=== PATIENT | male | born 1955 | race Caucasian/White ===

== ENCOUNTER 2022-10-18 14:09 | Outpatient (CLI) | payer MEDICARE, SELFPAY ==
[2022-10-18 18:48] LABS: Alanine Aminotransferase 30 U/L (6-50); Albumin Level 3.8 g/dL (3.5-5.1); Alkaline Phosphatase 80 U/L (38-126); Anion Gap 10 mmol/L (8-16); Aspartate Amino Transferase 28 U/L (17-59); Bilirubin,Total 0.6 mg/dL (0.2-1.3); Blood Urea Nitrogen 37 mg/dL (9-20); Calcium 9.3 mg/dL (8.4-10.2); Carbon Dioxide 26 mmol/L (22-30); Chloride 103 mmol/L (98-107); Cholesterol 216 mg/dL (0-200); Estimated Glomerular Filt Rate 47; Glucose 107 mg/dL (65-110); HDL Direct 28 mg/dL; Potassium 4.2 mmol/L (3.4-5.0); Sodium 139 mmol/L (137-145); Triglycerides 145 mg/dL (<150)
[2022-10-18 18:49] LABS: Basophils Absolute Auto 0.1 K/mm3 (0.0-0.1); Basophils Percent Auto 0.4 % (0.2-1.2); Eosinophils Absolute Auto 0.1 K/mm3 (0-0.3); Eosinophils Percent Auto 0.5 % (0-4.4); Hematocrit 45.8 % (42.0-52.0); Hemoglobin 15.2 g/dL (14.0-18.0); Immature Granulocyte Absolute 0.07 K/mm3 (0.00-0.031); Immature Granulocyte Percent A 0.5 % (0-0.5); Lymphocytes Absolute Auto 2.01 K/mm3 (0.9-3.2); Lymphocytes Percent Auto 13.7 % (18.3-44.2); Mean Corpuscular HGB Conc 33.2 g/dl (32-36); Mean Corpuscular Hemoglobin 31.3 pg (26-34); Mean Corpuscular Volume 94.4 fl (80-100); Mean Platelet Volume 10.6 fl (7.4-10.4); Monocytes Absolute Auto 1.7 K/mm3 (0.1-0.6); Monocytes Percent Auto 11.8 % (2.6-8.5); Neutrophils Absolute Auto 10.7 K/mm3 (1.3-6.7); Neutrophils Percent Auto 73.1 % (45.5-73.1); Platelet Count Result 206 k/mm3 (150-375); Red Blood Count 4.85 M/mm3 (4.6-6.20); Red Cell Distribution Width 12.3 % (11.5-14.5); White Blood Count 14.6 K/mm3 (4.5-10.0)
[2022-10-18 18:59] LABS: LDL Cholesterol Direct 141 mg/dL
[2022-10-18 19:17] LABS: Prostate Specific Antigen 24.6 ng/mL (< OR = 4.0)
== END 2022-10-18 14:10 | disposition home or self-care (01) ==
LOC: ANHGOSHLAB 14:10
PROVIDERS: PCP Family Medicine; Visit Provider Family Medicine
DX: Z13.220 Encounter for screening for lipoid disorders (principal); Z13.228 Encounter for screening for other metabolic disorders; R53.83 Other fatigue; I10 Essential (primary) hypertension; Z12.5 Encounter for screening for malignant neoplasm of prostate
CPT/HCPCS: 36415; 80053; 80061; 84153; 85025; G0103

== ENCOUNTER 2022-10-25 12:34 | Outpatient (CLI) | payer MEDICARE, SELFPAY ==
--- NOTE | ~2022-10-25 | CT_ITS ---
Non-contrast CT scan of the Abdomen Clinical indication: Abdominal pain Technique: Axial mm axial scans were obtained through the abdomen without intravenous or oral contras t. Dose reduction technique was used on this scan by utilizing automated exposure control and iterati ve reconstruction technique. The dose-length product (DLP) was 467.74 mGy-cm. Findings: Images through the lung bases reveal no abnormalities. Punctate nonobstructing left renal stone present. No right renal stone. No hydronephrosis on either s estrellita. The liver, spleen, pancreas, gallbladder, and adrenals appear normal. There is no aortic aneurysm. There is a 9.3 x 7.1 x 9.9 cm abscess, with internal air-fluid level in the right mid abdomen, with f ocal calcification at the inferior margin of the collection. There is mild surrounding inflammatory c hange. Impression: 9.3 x 7.1 x 9.9 cm right mid abdominal abscess. This is probably most likely related to perforated/co mplex appendicitis. Punctate nonobstructing left renal stone. Case discussed with Dr. Soriano at 1:15 PM on 10/25/2022. Reviewed, dictated and finalized at location . T DIPPER Impression: 9.3 x 7.1 x 9.9 cm right mid abdominal abscess. This is probably most likely re lated to perforated/complex appendicitis. Punctate nonobstructing left renal stone. Case discussed with Dr. Soriano at 1:15 PM on 10/25/2022.
== END 2022-10-25 12:35 ==
PROVIDERS: PCP Family Medicine; Visit Provider Nurse Practitioner Family
DX: N20.0 Calculus of kidney (principal); L02.211 Cutaneous abscess of abdominal wall
CPT/HCPCS: 74150

== ENCOUNTER 2022-10-25 13:28 | Inpatient (IN) | payer MEDICARE, SELFPAY ==
--- NOTE | ~2022-10-25 | CT_ITS ---
EXAMINATION: CT guide absc cath placement DATE: 10/25/2022 17:16 INDICATION: Periappendiceal abscess. TECHNIQUE: The procedure including the risks, benefits, and alternatives was discussed with the patie nt. Risks discussed included bleeding and infection. The patient understood the risks and benefits an d agreed to proceed. The skin overlying the abdomen was prepped and draped in usual sterile fashion. Anesthetic was administered with 1% lidocaine subcutaneously. An 18 gauge trochar needle was inserte d into the periappendiceal abscess with CT guidance. The needle was exchanged over a wire for 6 Frenc h, 8 Palauan, and 9 Palauan dilators and then for an 8.5 Palauan pigtail catheter. The catheter was stit ched to the skin, and a sterile dressing was applied. The mA was adjusted according to patient size. Iterative reconstruction technique was employed. The dose-length product was 117.64 mGy-cm. There wer e no immediate complications. FINDINGS: CT images demonstrate the catheter within the periappendiceal abscess. 2 mL fluid was aspir ated for testing. IMPRESSION: 1. Successful CT-guided periappendiceal abscess drainage. 2. 2 mL foul-smelling, opaque, meng fluid was sent for aerobic and anaerobic cultures. Reviewed, dictated and finalized at location E. [facility] [employer] [employer] IMPRESSION: 1. Successful CT-guided periappendiceal abscess drainage. 2. 2 mL foul-smelling, opaque, meng fluid was sent for aerobic and anaerobic cul tures.
[2022-10-25 13:35] VITALS: BP 140/81; PULSE 49; RESP 18; TEMP 36.4; O2SAT 100
--- NOTE | 2022-10-25 13:43 | ED.GENADULT ---
HPI - General Adult General Chief complaint: Recheck/Abnormal Lab/Rx Stated complaint: sent from imaging center for infection Time Seen by Provider: 10/25/22 13:36 Source: RN notes reviewed History of Present Illness HPI narrative: Patient presents emergency department from outpatient radiology for intra-abdominal abscess. Patient states has been having abdominal pain for approximately the past 1 week. The pain is located in the lower abdomen worse on the right side states it has been associated with some chills states he has seen his PCP last week and did continue to have the pain and had a CT scan done today and was instructed to come to the ER for further evaluation. Patient is review of his outpatient exam does show an intra-abdominal abscess with concerns of a ruptured appendix he denies having any fevers he denies any chest pain shortness of breath nausea vomiting diarrhea or any other symptom Related Data Allergies Allergy/AdvReac Type Severity Reaction Status Date / Time No Known Allergies Allergy Verified 10/25/22 10:05 Review of Systems Review of Systems: Gen.: Denies fevers reports chills ENT: Denies congestion Respiratory: Denies shortness of breath or cough CV: Denies chest pain or palpitations GI: See HPI Musculoskeletal: Denies back pain or muscle pain Neuro: Denies numbness, tingling, weakness or focal weakness Skin: Denies rash Except as documented, all other systems reviewed and negative PMFSH Past Medical History Medical History Gastroesophageal reflux disease Social History Social History Smoking status: Never smoker Alcohol intake: never Substance use: never Lack of Transportation: No Lack of Food: Never True Current Housing: I Have Housing Concerned About Future Housing: No Difficulty Paying Gas/Electric Bills: No Difficulty Paying for Meds: No Currently Unemployed: No Education: Trade/Vocational Certificate Difficulty w/ Childcare or Family Care: No Living arrangements: alone Occupation/Education: retired Gender identity (if verbalized by the patient): Male Exam Narrative: APPEARANCE: No acute distress, nontoxic, resting in bed HEENT: Normocephalic, atraumatic, OMM RESPIRATORY: No respiratory distress, clear to auscultation bilaterally with no rhonchi wheezing or rales CARDIOVASCULAR: RRR s murmur ABDOMINAL: Soft nondistended tender palpation right lower quadrant and left lower quadrant no tenderness in right upper quadrant and left upper quadrant no rebound or guarding MUSCULOSKELETAl: Moves all extremities. No clubbing, cyanosis or edema. NEURO: Awake and alert. Following commands, speech normal, no focal deficits SKIN:: Warm, dry. Normal Color PSYCHIATRIC: Normal affect/mood Course Course Emergency Course: Reviewed outpatient CT scan showing intra-abdominal abscess Called and discussed with Dr. Goodson for general surgery presentation work-up. Agrees admission to his service with patient started on Zosyn Discussed with patient and family results of workup and diagnosis. Discussed need for admission. Patient and family understand and agree to current treatment plan Vital Signs Vital signs: Vital Signs Temperature 97.6 F 10/25/22 13:35 Pulse Rate 49 L 10/25/22 13:35 Respiratory Rate 18 10/25/22 13:35 Blood Pressure 140/81 10/25/22 13:35 Pulse Oximetry 100 10/25/22 13:35 Temperature 97.6 F 10/25/22 13:35 Pulse Rate 49 L 10/25/22 13:35 Respiratory Rate 18 10/25/22 13:35 Blood Pressure 140/81 10/25/22 13:35 Pulse Oximetry 100 10/25/22 13:35 Medical Decision Making Vital Signs Vital Signs: Vital Signs Temperature 97.6 F 10/25/22 13:35 Pulse Rate 49 L 10/25/22 13:35 Respiratory Rate 18 10/25/22 13:35 Blood Pressure 140/81 10/25/22 13:35 Pulse Oximetry 100 10/25/22 13:35 Temperat
[2022-10-25 14:40] LABS: Basophils Absolute Auto 0.1 K/mm3 (0.0-0.1); Basophils Percent Auto 0.3 % (0.2-1.2); Hematocrit 40.7 % (42.0-52.0); Hemoglobin 13.6 g/dL (14.0-18.0); Immature Granulocyte Percent A 0.9 % (0-0.5); Lymphocytes Absolute Auto 1.24 K/mm3 (0.9-3.2); Lymphocytes Percent Auto 5.5 % (18.3-44.2); Mean Corpuscular HGB Conc 33.4 g/dl (32-36); Mean Corpuscular Hemoglobin 31.9 pg (26-34); Mean Corpuscular Volume 95.5 fl (80-100); Monocytes Absolute Auto 1.6 K/mm3 (0.1-0.6); Monocytes Percent Auto 7.1 % (2.6-8.5); Neutrophils Absolute Auto 19.5 K/mm3 (1.3-6.7); Neutrophils Percent Auto 86.2 % (45.5-73.1); Platelet Count Result 256 k/mm3 (150-375); Red Blood Count 4.26 M/mm3 (4.6-6.20); Red Cell Distribution Width 12.2 % (11.5-14.5); White Blood Count 22.6 K/mm3 (4.5-10.0)
[2022-10-25 14:51] LABS: INR 1.2; Partial Thromboplastin Time 28.3 SECONDS (22.3-36.8); Prothrombin Time 14.9 Seconds (11.1-14.7)
[2022-10-25 14:52] LABS: Alanine Aminotransferase 25 U/L (6-50); Albumin Level 3.7 g/dL (3.5-5.1); Alkaline Phosphatase 105 U/L (38-126); Anion Gap 11 mmol/L (8-16); Aspartate Amino Transferase 24 U/L (17-59); Bilirubin,Total 0.6 mg/dL (0.2-1.3); Blood Urea Nitrogen 26 mg/dL (9-20); Calcium 8.7 mg/dL (8.4-10.2); Carbon Dioxide 23 mmol/L (22-30); Chloride 102 mmol/L (98-107); Estimated CRCL calculation 58 ml/min; Estimated Glomerular Filt Rate > 60; Glucose 111 mg/dL (65-110); Sodium 136 mmol/L (137-145)
[2022-10-25] MEDS: SODIUM CHLORIDE 0.9% IV 1,000 ML 999 ML IV CONT (15:03)
[2022-10-25 15:20] LABS: Appearance Urine Slightly Cloudy (Clear); Bilirubin Urine 1+ (Negative); Blood Urine Negative (Negative); Color Urine Yellow (Yellow); Glucose Urine UA Negative (Negative); Ketones Urine 3+ mg/dL (Negative); Leukocyte Esterase Ur Negative LEU/UL (Negative); Nitrate Urine Negative (Negative); Protein Urine 1+ mg/dL (Negative); Specific Grav Ur 1.025 (1.001-1.035); Urobilinogen Urine 0.2 mg/dL (<2.0); pH Urine 5.5 (5.0-9.0)
[2022-10-25 15:23] LABS: Influenza A QL RT-PCR Negative (Negative); Influenza B QL RT-PCR Negative (Negative); SARS-CoV-2 RNA PCR Negative
[2022-10-25 15:26] LABS: Bacteria Urine Trace /hpf; Mucus Urine Heavy /lpf; Squamous Epithelial Cell Urine Rare /hpf (Few)
[2022-10-25 15:45] LABS: Add Urine Microscopic? YES
--- NOTE | 2022-10-25 15:47 | PM.IMHP ---
H&P: HPI History of Present Illness Date/Time: 10/25/22 15:47 Chief Complaint: Abdominal pain Narrative: This is a 67-year-old man with a history of hypertension and GERD who presented to the emergency department due to findings of an intra-abdominal abscess on an outpatient CT scan. He reports an onset of periumbilical and right lower quadrant abdominal pain 9 days ago. His pain was persistent and keeping him up at night. After a few days he went to his primary care provider last Tuesday due to his abdominal pain and sciatic pain. He states that prior to the onset of his abdominal pain he was also having some radiating sciatic pain that has been going on a few days longer. This was similar to an episode he had years ago. His PCP ordered labs at that time. Those labs showed a white blood cell count of 14,600, BUN 37, creatinine 1.5, elevated cholesterol, and a PSA of 24.6. He was referred to urology as an outpatient. He reports his abdominal pain continued throughout the week without improvement and he return to see his PCP today. He has not had much sleep in the past week due to his pain because it is aggravated when he lies on his sides. They sent him for CT scan of the abdomen and pelvis which showed a 9.3 x 7.1 x 9.9 cm right mid abdominal abscess that is probably related to perforated appendicitis. He was then directed to the ER due to the CT findings. Labs were repeated and showed a white blood cell count of 22,000. His creatinine was down to 1.2. The ED consulted our service due to intra-abdominal abscess. He is now seen in the ER. With further questioning, he admits to having chills the first day or 2 after the onset of abdominal pain, but no fever. Denies any nausea, vomiting, diarrhea, or any other complaints at this time. His bowels have been moving normally with his last bowel movement earlier today. He does endorse some bloating over the past week. No previous abdominal surgeries. He has had one colonoscopy with polypectomy about 15 years ago. He additionally reports after being referred to urology last week, he had an MRI done in [place] 3 days ago. Review of Systems Review of Systems: All systems reviewed & are unremarkable except as noted in HPI and below Constitutional: Constitutional: Reports no additional constitutional complaints, Reports chills, Denies fatigue, Denies fever(s) and Denies poor appetite Eyes: Eyes: Reports no additional eye complaints ENT: Reports system reviewed and no additional complaints, except as documented and Denies dizziness Cardiovascular: Cardiovascular: Reports no additional cardiovascular complaints, Denies chest pain and Denies leg edema Respiratory: Respiratory: Reports no additional respiratory complaints, Denies cough and Denies dyspnea Gastrointestinal: Gastrointestinal: Reports as per HPI, Reports no additional gastrointestinal complaints, Reports abdominal pain, Denies change in bowel habits, Denies change in stool character, Denies constipation, Denies diarrhea, Denies nausea and Denies vomiting Genitourinary: Genitourinary: Reports no additional male genitourinary complaints and Denies dysuria Musculoskeletal: Musculoskeletal: Reports no additional musculoskeletal complaints, Denies abnormal gait and Denies joint swelling Integumentary/Breasts: Skin/Breast: Reports system reviewed and no additional complaints, except as docu Neurologic: Reports system reviewed and no additional complaints, except as documented, Denies focal weakness, Denies numbness and Denies tingling PMFSH Past Medical History Medical History Essential (primary) hypertension Gastroesophageal reflux disease Hyperlipidemia Surgical History Surgical History History of colonoscopy with polypectomy History of knee surgery Family History Family History (Reviewed 10/25/22 @ 16:02 by Hali
[2022-10-25 17:25] VITALS: BP 136/88; PULSE 84; RESP 18; O2SAT 100
--- NOTE | 2022-10-25 17:58 | ADMGEN ---
This patient, Herbert Hernandez, was admitted to [facility] Surg Room 302-01. Patient/family oriented to hospital policies and general routines including ID bracelet, bed and alarms, visiting hours, pain management, procedures, bathroom and other care routines, personal items, smoking policy, room service/diet, and visiting hours. Information on how to activate the Rapid Response Team has been discussed. Patient/Family are encouraged to report perceived risks to care and to ask questions if they do not understand what they are told or what they should do.
[2022-10-25 18:00] VITALS: BP 170/80; PULSE 86; RESP 18; TEMP 37.2; O2SAT 100; BMI 27.8
[2022-10-25] MEDS: SODIUM CHLORIDE 0.9% IV 1,000 ML 125 ML IV CONT (18:10)
[2022-10-25] MEDS: hydrALAZINE HCL 20 MG/ML VIAL 10 MG IV PUSH (18:32)
[2022-10-25 21:32] VITALS: BP 126/72; PULSE 86; RESP 18; TEMP 36.8; O2SAT 97
[2022-10-26] MEDS: SODIUM CHLORIDE 0.9% IV 1,000 ML 125 ML IV CONT (02:36)
[2022-10-26 05:52] VITALS: BP 125/77; PULSE 74; RESP 16; TEMP 36.3; O2SAT 95
[2022-10-26 06:52] LABS: Basophils Percent Auto 0.2 % (0.2-1.2); Eosinophils Percent Auto 0.1 % (0-4.4); Hematocrit 35.7 % (42.0-52.0); Hemoglobin 11.7 g/dL (14.0-18.0); Immature Granulocyte Percent A 0.6 % (0-0.5); Lymphocytes Absolute Auto 1.57 K/mm3 (0.9-3.2); Lymphocytes Percent Auto 9.8 % (18.3-44.2); Mean Corpuscular HGB Conc 32.8 g/dl (32-36); Mean Corpuscular Hemoglobin 31.1 pg (26-34); Mean Corpuscular Volume 94.9 fl (80-100); Mean Platelet Volume 10.1 fl (7.4-10.4); Monocytes Absolute Auto 1.4 K/mm3 (0.1-0.6); Monocytes Percent Auto 8.6 % (2.6-8.5); Neutrophils Percent Auto 80.7 % (45.5-73.1); Platelet Count Result 231 k/mm3 (150-375); Red Blood Count 3.76 M/mm3 (4.6-6.20); Red Cell Distribution Width 12.4 % (11.5-14.5); White Blood Count 16.1 K/mm3 (4.5-10.0)
[2022-10-26 07:18] LABS: Alanine Aminotransferase 21 U/L (6-50); Alkaline Phosphatase 87 U/L (38-126); Anion Gap 5 mmol/L (8-16); Aspartate Amino Transferase 24 U/L (17-59); Bilirubin,Total 0.7 mg/dL (0.2-1.3); Blood Urea Nitrogen 22 mg/dL (9-20); Calcium 7.8 mg/dL (8.4-10.2); Carbon Dioxide 25 mmol/L (22-30); Chloride 103 mmol/L (98-107); Estimated CRCL calculation 58 ml/min; Estimated Glomerular Filt Rate > 60; Glucose 95 mg/dL (65-110); Potassium 4.1 mmol/L (3.4-5.0); Sodium 133 mmol/L (137-145)
--- NOTE | 2022-10-26 12:28 | PM.PNGS ---
Progress Note: A&P Assessment and Plan (1) Acute perforated appendicitis: Code(s): K35.32 - Acute appendicitis with perforation, localized peritonitis, and gangrene, without abscess Status: Acute Assessment and Plan: exam benign, cont abx, ADAT, will possibly need interval appendectomy in 6-8 wks (2) Intra-abdominal abscess: Code(s): K65.1 - Peritoneal abscess Status: Acute Assessment and Plan: s/p perc drain, cont drain/abx Subjective Subjective Date/Time Seen: 10/26/22 12:28 feels good, pain/pressure much improved Review of Systems Review of Systems: All systems reviewed & are unremarkable except as noted in HPI and below Exam Const: General: cooperative, comfortable and no acute distress Resp: Auscultation: clear to auscultation bilaterally Cardio: Rate: regular rate Rhythm: regular rhythm GI: Inspection: normal to inspection and distended GI Palp: Yes abdominal tenderness, Yes Soft to palpation, Yes Tenderness to palpation present (GI), No Guarding due to palpation present (GI) and No Rigid due to palpation Objective Data Vital Signs Vital Signs: Vital Signs - 24 hr 10/25/22 13:35 10/25/22 17:25 10/25/22 17:50 Temperature 36.4 C Pulse Rate 49 L 84 Respiratory Rate 18 18 Blood Pressure 140/81 136/88 Pulse Oximetry 100 100 Oxygen Delivery Room Air 10/25/22 18:00 10/25/22 21:32 10/26/22 05:52 Temperature 37.2 C 36.8 C 36.3 C L Pulse Rate 86 86 74 Respiratory Rate 18 18 16 Blood Pressure 170/80 H 126/72 125/77 Pulse Oximetry 100 97 95 Oxygen Delivery Intake/Output Intake/Output: Intake & Output 10/23/22 10/24/22 10/25/22 10/26/22 23:59 23:59 23:59 23:59 Intake Total 1100 1400 Output Total 80 Balance 1020 1400 Meds/Results Medications: Active Medications Generic Name Dose Route Start Last Admin Trade Name Freq PRN Reason Stop Dose Admin Hydralazine HCl 10 mg 10/25/22 18:23 Hydralazine Hcl 20 Mg/Ml Vial IV PUSH Q4HR PRN Blood Pressure - High SBP>180 or DBP>90 Piperacillin/Tazobactam/Dextrose 3.375 gm in 50 mls @ 100 mls/hr 10/25/22 21:00 10/26/22 09:03 Zosyn 3.375 Gm/D5w 50ml Pm IVPB Infused Q6H BERNA Infusion Acetaminophen 1,000 mg in 100 mls @ 400 mls/hr 10/25/22 16:09 Ofirmev 1,000 Mg Ivpb IVPB 10/26/22 16:08 Q6H PRN Pain Rated 4-6 Morphine Sulfate 2 mg 10/25/22 16:09 Morphine Sulfate (*Crx) 2 Mg/Ml Inj IV PUSH Q2H PRN Pain Rated 7-10 Radiology Results: ITS Impressions Catheter Placement CT 10/25/22 17:54 IMPRESSION: 1. Successful CT-guided periappendiceal abscess drainage. 2. 2 mL foul-smelling, opaque, meng fluid was sent for aerobic and anaerobic cultures. Labs Labs: Laboratory Results - last 24 hr 10/25/22 10/25/22 10/25/22 14:09 14:09 14:09 WBC 22.6 H RBC 4.26 L Hgb 13.6 L Hct 40.7 L MCV 95.5 MCH 31.9 MCHC 33.4 RDW 12.2 Plt Count 256 MPV 10.0 Immature Gran % (Auto) 0.9 H Neut % (Auto) 86.2 H Lymph % (Auto) 5.5 L Hawkins % (Auto) 7.1 Eos % (Auto) 0.0 Baso % (Auto) 0.3 Lymph # (Auto) 1.24 Hawkins # (Auto) 1.6 H Eos # (Auto) 0.0 Baso # (Auto) 0.1 Abs Immat Gran (auto) 0.20 H Absolute Neuts (auto) 19.5 H Absolute Nucleated RBC 0.0 Nucleated RBC % 0.0 PT 14.9 H INR 1.2 APTT 28.3 Sodium 136 L Potassium 4.0 Chloride 102 Carbon Dioxide 23 Anion Gap 11 BUN 26 H D Creatinine 1.20 Estim Creat Clear Calc 58 Estimated GFR > 60 Glucose 111 H Lactic Acid Calcium 8.7 Total Bilirubin 0.6 AST 24 ALT 25 Alkaline Phosphatase 105 Total Protein 7.0 Albumin 3.7 Urine Color Urine Appearance Urine pH Ur Specific [place] Urine Protein Urine Glucose (UA) Urine Ketones Ur Blood (Man) Urine Nitrate Urine Bilirubin Urine Urobilinogen Leukocyte Esterase Rfl Ur
[2022-10-26 12:40] VITALS: BMI 27.8
--- NOTE | 2022-10-26 13:22 | PM.IMCN ---
Assessment and Plan Assessment and plan (1) Acute perforated appendicitis: Code(s): K35.32 - Acute appendicitis with perforation, localized peritonitis, and gangrene, without abscess Status: Acute Assessment and Plan: Pt seen by surgery team Sp percutenous drain Good output will need appendectomy soon in 6-8 weeks time continue iv zosyn watch cultures follow [facility] (2) Hyperlipidemia: Qualifiers: Hyperlipidemia type: other hyperlipidemia Qualified Code(s): E78.49 - Other hyperlipidemia Code(s): E78.5 - Hyperlipidemia, unspecified Status: Chronic Assessment and Plan: low cholesterol diet recommended pt is not on any cholesterol medications (3) Essential (primary) hypertension: Code(s): I10 - Essential (primary) hypertension Status: Chronic Assessment and Plan: Continue lisinopril in the hospital Watch blood pressures here in the hospital Bp is 125/77 Chronic and stable (4) Overweight (BMI 25.0-29.9): Code(s): E66.3 - Overweight Status: Acute Assessment and Plan: Diet and exercise advised (5) Gastroesophageal reflux disease: Code(s): K21.9 - Gastro-esophageal reflux disease without esophagitis Status: Acute Assessment and Plan: Continue home omeprazole (6) Urinary hesitancy: Code(s): R39.11 - Hesitancy of micturition Status: Acute Assessment and Plan: Watch UO Watch BMP PSA is high as outpatient pt to follow with urology MD for BPH Add tamsulosin for BPH Plan lovenox for DVT prophylaxis HPI Data of Consult Consult date: 10/26/22 Requesting Physician: Roxann Goodson MD Primary Care Provider: Karlo Rider DO Consult Narrative Narrative: Herbert Hernandez is a 67 year old male admitted for severe LLQ abdominal pains Pt had been having severe LLQ abdominal pains for 1 week waking him up in his sleep Pt went to his PCP MD last Tuesday for abdominal pains and sciatica. Pt had labs ordered at that time showing raised PSA Pt is a to follow with urologist for urinary hesitancy and elevated PSA. Pt having severe abdominal pains so CT abdomen ordered stat yesterday showing - 9.3 x 7.1 x 9.9 cm right mid abdominal abscess. This is probably most likely related to perforated/complex appendicitis. Punctate nonobstructing left renal stone Pt was advised to go straight to ED PT seen by surgery had percutaneous drain and iv antibiotics started Pt has history of GERD, HTN and HLD and recently found to have raised PSA levels Review of Systems Review of Systems: Urinary hesitancy mild LLQ pains PMFSH Past Medical History Medical History Essential (primary) hypertension Gastroesophageal reflux disease Hyperlipidemia Surgical History Surgical History History of colonoscopy with polypectomy History of knee surgery Family History Family History Father Brain cancer Hypertension Mother Uterine cancer Parkinsons Social History Social History Smoking status: Never smoker Alcohol intake: never Substance use: never Lack of Transportation: No Lack of Food: Never True Current Housing: I Have Housing Concerned About Future Housing: No Difficulty Paying Gas/Electric Bills: No Difficulty Paying for Meds: No Currently Unemployed: No Education: Trade/Vocational Certificate Difficulty w/ Childcare or Family Care: No Living arrangements: alone Occupation/Education: retired Gender identity (if verbalized by the patient): Male Spiritual care concerns: No Meds Home Medications and Allergies Home Medications Medication Instructions Recorded Confirmed Type lisinopril 10 mg tablet 10 mg PO DAILY #30
[2022-10-26 14:00] VITALS: BP 141/82; PULSE 84; RESP 20; TEMP 36.6; O2SAT 97
[2022-10-26] MEDS: PANTOPRAZOLE 40 MG TABLET PO (20:39)
[2022-10-26 22:00] VITALS: BP 137/79; PULSE 72; RESP 18; TEMP 36.4; O2SAT 97
[2022-10-27 06:00] VITALS: BP 149/77; PULSE 67; RESP 14; TEMP 36.2; O2SAT 98
[2022-10-27 06:53] LABS: Hematocrit 36.9 % (42.0-52.0); Hemoglobin 12.1 g/dL (14.0-18.0); Mean Corpuscular HGB Conc 32.8 g/dl (32-36); Mean Corpuscular Hemoglobin 31.3 pg (26-34); Mean Corpuscular Volume 95.3 fl (80-100); Mean Platelet Volume 9.9 fl (7.4-10.4); Platelet Count Result 243 k/mm3 (150-375); Red Blood Count 3.87 M/mm3 (4.6-6.20); Red Cell Distribution Width 12.2 % (11.5-14.5); White Blood Count 10.2 K/mm3 (4.5-10.0)
[2022-10-27 07:01] LABS: Anion Gap 4 mmol/L (8-16); Blood Urea Nitrogen 18 mg/dL (9-20); Calcium 8.1 mg/dL (8.4-10.2); Carbon Dioxide 26 mmol/L (22-30); Chloride 104 mmol/L (98-107); Estimated CRCL calculation 58 ml/min; Estimated Glomerular Filt Rate > 60; Glucose 98 mg/dL (65-110); Potassium 3.8 mmol/L (3.4-5.0); Sodium 134 mmol/L (137-145)
[2022-10-27] MEDS: lisinopriL 10 MG TABLET PO (09:10)
[2022-10-27] MEDS: TAMSULOSIN HCL 0.4 MG CAPSULE PO (09:10)
[2022-10-27] MEDS: ENOXAPARIN 40 MG/0.4 ML SYRINGE SUB-Q (09:10)
[2022-10-27 09:24] VITALS: O2SAT 96
--- NOTE | 2022-10-27 11:42 | PM.IMPN ---
Progress Note: A&P Assessment and Plan (1) Acute perforated appendicitis: Code(s): K35.32 - Acute appendicitis with perforation, localized peritonitis, and gangrene, without abscess Status: Acute Assessment and Plan: Pt seen by surgery team Sp percutenous drain Good output will need appendectomy soon in 6-8 weeks time continue iv zosyn watch cultures follow [facility] (2) Hyperlipidemia: Qualifiers: Hyperlipidemia type: other hyperlipidemia Qualified Code(s): E78.49 - Other hyperlipidemia Code(s): E78.5 - Hyperlipidemia, unspecified Status: Chronic Assessment and Plan: low cholesterol diet recommended pt is not on any cholesterol medications (3) Essential (primary) hypertension: Code(s): I10 - Essential (primary) hypertension Status: Chronic Assessment and Plan: Continue lisinopril in the hospital Watch blood pressures here in the hospital Bp is 125/77 Chronic and stable (4) Overweight (BMI 25.0-29.9): Code(s): E66.3 - Overweight Status: Acute Assessment and Plan: Diet and exercise advised (5) Gastroesophageal reflux disease: Code(s): K21.9 - Gastro-esophageal reflux disease without esophagitis Status: Acute Assessment and Plan: Continue home omeprazole (6) Urinary hesitancy: Code(s): R39.11 - Hesitancy of micturition Status: Acute Assessment and Plan: Watch UO Watch BMP PSA is high as outpatient pt to follow with urology MD for BPH Add tamsulosin for BPH Plan lovenox for DVT prophylaxis Subjective Date/time seen: 10/27/22 11:42 No new complaints Exam Const: General: cooperative, comfortable and no acute distress Eyes: Other: Middle aged friendly man Resp: Auscultation: clear to auscultation bilaterally Cardio: Rate: regular rate Rhythm: regular rhythm GI: Inspection: normal to inspection and distended Other: Percutaneous drain in the LLQ draining well red colored drainage Psych: Other: Looks depressed and down Objective Data Vital Signs Vital Signs: Vital Signs - 24 hr 10/26/22 14:00 10/26/22 22:00 10/27/22 06:00 Temperature 97.8 F 97.5 F L 97.2 F L Pulse Rate 84 72 67 Respiratory Rate 20 18 14 Blood Pressure 141/82 H 137/79 149/77 H Pulse Oximetry 97 97 98 Oxygen Delivery 10/27/22 09:24 Temperature Pulse Rate Respiratory Rate Blood Pressure Pulse Oximetry 96 Oxygen Delivery Room Air Intake/Output Intake/Output: Intake & Output 10/24/22 10/25/22 10/26/22 10/27/22 23:59 23:59 23:59 23:59 Intake Total 1100 1690 400 Output Total 80 185 Balance 1020 1505 400 Meds/Results Medications: Active Medications Generic Name Dose Route Start Last Admin Trade Name Freq PRN Reason Stop Dose Admin Hydrocodone Bitart/Acetaminophen 1 tab 10/26/22 13:41 Hydrocodone/Acetaminophen (*Crx) 5-325 Mg Tablet PO Q6H PRN Pain Rated 4-6 Enoxaparin Sodium 40 mg 10/27/22 09:00 10/27/22 09:10 Enoxaparin 40 Mg/0.4 Ml Syringe SUB-Q 40 mg DAILY BERNA Administration Hydralazine HCl 10 mg 10/25/22 18:23 Hydralazine Hcl 20 Mg/Ml Vial IV PUSH Q4HR PRN Blood Pressure - High SBP>180 or DBP>90 Piperacillin/Tazobactam/Dextrose 3.375 gm in 50 mls @ 100 mls/hr 10/25/22 21:00 10/27/22 09:09 Zosyn 3.375 Gm/D5w 50ml Pm IVPB 100 mls/hr Q6H BERNA Administration Lisinopril 10 mg 10/27/22 09:00 10/27/22 09:10 Lisinopril 10 Mg Tablet PO 10 mg DAILY BERNA Administration Morphine Sulfate 2 mg 10/25/22 16:09 Morphine Sulfate (*Crx) 2 Mg/Ml Inj IV PUSH Q2H PRN Pain Rated 7-10 Pantoprazole Sodium 40 mg 10/26/22 21:00 10/26/22 20:39 Pantoprazole 40 Mg Tablet PO 40 mg Q12HR BERNA Administration Tamsulosin HCl 0.4 mg 10/27/22 09:00 10/27/22 09:10 Tamsulosin Hcl 0.4 Mg Capsule PO 0.4 mg QAM BERNA Administration Radiology Results: ITS Impressions
[2022-10-27 14:00] VITALS: BP 147/86; PULSE 82; RESP 20; TEMP 36.2; O2SAT 98
--- NOTE | 2022-10-27 14:32 | PM.DS ---
DS: Admitting Diagnosis Discharge Date 10/27/22 Admitting Diagnosis Intra-abdominal abscess with acute perforated appendicitis Hypertension GERD DS: Discharge Diagnosis Discharge Diagnosis (1) Acute perforated appendicitis: Code(s): K35.32 - Acute appendicitis with perforation, localized peritonitis, and gangrene, without abscess Status: Acute (2) Intra-abdominal abscess: Code(s): K65.1 - Peritoneal abscess Status: Acute (3) Urinary hesitancy: Code(s): R39.11 - Hesitancy of micturition Status: Acute Assessment and Plan: Patient with an elevated PSA found on labs recently as an outpatient by his PCP. He has a referral to Urology and had an outpatient MRI last week for this. Urology was called and reviewed his chart but felt there were no acute issues that needed to be addressed during his hospitalization and he would be appropriate for outpatient follow-up to discuss his MRI results and elevated PSA. Hospitalist was consulted for medical management and he began complaining of urinary hesitancy that was treated with tamsulosin. This will be continued on discharge with follow-up with his primary and Urology as scheduled. (4) Essential (primary) hypertension: Code(s): I10 - Essential (primary) hypertension Status: Chronic Assessment and Plan: His home dose lisinopril was restarted. This has remained stable. Will be discharged on home medication without changes. F/u with PCP. DS: Summary Hospital Course Reason for hospitalization: This is a 67-year-old man with a history of hypertension and GERD who presented to the emergency department due to findings of an intra-abdominal abscess on an outpatient CT scan.? He was having periumbilical and RLQ abdominal pain x 9 days prior to presentation. He was seen by his PCP as an outpatient who had ordered the CT scan of the abdomen and pelvis. He was then directed to the ER for further evaluation. Labs in the ER showed a WBC count of 22,000. CT suggested a 9.3 x 7.1 x 9.9 cm right mid abdominal abscess that is probably related to perforated appendicitis.?He was admitted to our service in this setting for surgical evaluation and treatment. Hospital Course: The patient was admitted and started on IV Zosyn for broad-spectrum antibiotics. The CT was reviewed with the Radiologist and the abscess appeared amenable to drainage, therefore he was taken to Radiology for percutaneous drainage on 10/25/22. Following the procedure, he was slowly advanced to a regular diet, which he has tolerated well. His bowels have been moving normally. His serial labs show a downward trend of his white blood cell count to 10,000 today. He has been afebrile. He is no longer having any abdominal pain and his exam is benign. His percutaneous drain has been monitored and continues to have a fair amount of output. Discussed the case with Dr. Goodson and the Hospitalist who are all agreeable that he is stable for discharge today. He will be discharged with the drain and plan to have a repeat CT scan of the abdomen/pelvis on Tuesday with a follow-up with Dr. Goodson after to possible remove the drain. Will transition him also to oral antibiotics on discharge for a total of 14 days. Preliminary abscess cultures showing growth of bacteroides fragilis, final results pending on discharge. Dr. Goodson recommended ciprofloxacin and metronidazole. He was also started on tamsulosin for urinary hesitance as mentioned above, which he will be discharged with a script and follow-up with primary care and Urology. Patient was instructed by myself and nursing prior to discharge on drain management for going home. Status at Discharge Functional status at discharge: independent ambulation Overall status at discharge: patient is progressing back to baseline Time Spent with Patient Time attestation: Total time spent providing and/or coordinating discharge services: Time spent: Greater than 30 minutes Exam Const:
== END 2022-10-27 16:30 | disposition home or self-care (01) | DRG 373 ==
LOC: ANHED 15:31 → ANH3MEDSUR 18:35
PROVIDERS: Family Medicine; Admitting Provider Surgery; Emergency Provider Emergency Medicine; PCP Family Medicine; Visit Provider Nurse Practitioner Family
DX: K35.33 Acute appendicitis with perforation, localized peritonitis, and gangrene, with abscess (principal); B96.6 Bacteroides fragilis [B. fragilis] as the cause of diseases classified elsewhere; E78.49 Other hyperlipidemia; E78.5 Hyperlipidemia, unspecified; I10 Essential (primary) hypertension; E66.3 Overweight; K21.9 Gastro-esophageal reflux disease without esophagitis; N40.1 Benign prostatic hyperplasia with lower urinary tract symptoms; R39.11 Hesitancy of micturition; Z20.822 Contact with and (suspected) exposure to COVID-19
CPT/HCPCS: 36415; 75989; 80048; 80053; 81001; 83605; 85025; 85027; 85610; 85730; 87040; 87070; 87075; 87076; 87086; 87205; 87636; 99285; A9270; C1729; J0360; J1650; J2543; J7030

== ENCOUNTER 2022-10-29 06:35 | Outpatient (CLI) | payer MEDICARE, SELFPAY ==
--- NOTE | ~2022-10-29 | CT_ITS ---
CT Abdomen and Pelvis with contrast. History: Percutaneous drainage catheter, abscess. Spiral CT of the abdomen and pelvis was performed after the administration of intravenous contrast. 1 00 cc of Omnipaque 350 was administered intravenously without complication. Dose reduction technique was used on this scan by utilizing automated exposure control and iterative reconstruction technique. The dose-length product (DLP) was 630.30 mGy-cm. COMPARISON: 10/25/2022 Findings: Scans through the lung bases demonstrate mild atelectatic change. The liver, spleen, pancreas, gallbladder, adrenals and right kidney are within normal limits. Stable punctate nonobstructing left renal stone. No evidence of aortic aneurysm. There is no evidence of bowel obstruction. Patient is status post interval placement of percutaneous drainage catheter into the large right mid abdominal abscess seen on recent prior exam. Abscess is no w significantly decreased in size, now measuring approximately 4.3 x 2.4 x 3.1 cm in size, with persi stent surrounding inflammatory change. There are shotty reactive lymph nodes adjacent to the abscess. Images through the pelvis were performed. Urinary bladder unremarkable. Prostate is again significant ly enlarged. Single minimally enlarged left external iliac lymph node is present, measuring 11 mm in short axis (axial image 141). No ascites is seen. Impression: Right mid abdominal abscess is significantly decreased in size following interval placement of percut aneous drainage catheter. Abscess now measures approximately 4.3 x 2.4 x 3.1 cm, with percutaneous dr jahaira catheter in place. There is surrounding inflammatory change and shotty adjacent reactive lymph nodes. Single minimally enlarged left external iliac lymph node, presumably reactive. Reviewed, dictated and finalized at [facility]. [employer] Impression: Right mid abdominal abscess is significantly decreased in size following interv al placement of percutaneous drainage catheter. Abscess now measures approximat lamont 4.3 x 2.4 x 3.1 cm, with percutaneous drainage catheter in place. There is surrounding inflammatory change and shotty adjacent reactive lymph nodes. Single minimally enlarged left external iliac lymph node, presumably reactive.
== END 2022-10-29 06:36 | disposition home or self-care (01) ==
PROVIDERS: PCP Family Medicine; Visit Provider Surgery
DX: K35.32 Acute appendicitis with perforation, localized peritonitis, and gangrene, without abscess (principal)
CPT/HCPCS: 74177; Q9967

== ENCOUNTER 2022-11-03 09:13 | Outpatient (CLI) | payer MEDICARE, SELFPAY ==
--- NOTE | ~2022-11-03 | CT_ITS ---
EXAMINATION: CT abdomen pelvis wo con DATE: 11/03/2022 09:43 INDICATION: Right pelvic abscess TECHNIQUE: Computed tomography (CT) of the abdomen and pelvis was performed without intravenous contr ast. The dose-length product (DLP) was 475.70 mGy-cm. Automated exposure control and iterative recons truction technique were employed. COMPARISON: 10/29/2022, 10/25/2022 FINDINGS: Minimal dependent atelectasis is present in the lung bases. The heart size is normal. The l iver, spleen, pancreas, gallbladder, and adrenal glands are normal. Cysts of the kidneys measure up t o 12 mm on the right. An unchanged, mildly enlarged left external iliac chain lymph node is again not ed. There is a 4.2 x 3.2 cm right mid abdomen abscess with indwelling percutaneous drain which has de creased in size since the comparison examination, previously measuring 4.3 x 2.4 x 3.1 cm. There are adjacent reactive subcentimeter lymph nodes. There are no dilated loops of bowel. There is severe lum bar spondylosis. A fat-containing umbilical hernia is noted. IMPRESSION: 1. Continued interval decrease in size of right mid abdominal abscess containing a percutaneous drain age catheter. Reviewed, dictated and finalized at [facility]. [employer] EXECUTIVE IMPRESSION: 1. Continued interval decrease in size of right mid abdominal abscess containin g a percutaneous drainage catheter.
== END 2022-11-03 09:14 | disposition home or self-care (01) ==
PROVIDERS: PCP Family Medicine; Visit Provider Surgery
DX: K65.1 Peritoneal abscess (principal)
CPT/HCPCS: 74176

== ENCOUNTER 2022-12-01 12:19 | Outpatient (CLI) | payer MEDICARE, SELFPAY ==
--- NOTE | ~2022-12-01 | CT_ITS ---
Non-contrast CT scan of the Abdomen and Pelvis Clinical indication: Appendicitis Technique: 2.5 mm axial scans were obtained through the abdomen and pelvis without intravenous or or al contrast. Dose reduction technique was used on this scan by utilizing automated exposure control a nd iterative reconstruction technique. The dose-length product (DLP) was 480.58 mGy-cm. COMPARISON: 11/03/2022 Findings: Images through the lung bases reveal no abnormalities. The liver, spleen, pancreas, gallbladder, right kidney, and adrenals appear normal. 2 mm nonobstructi ng left renal stone present. There is no aortic aneurysm. There are atherosclerotic calcifications of the aorta. Thickening and poor definition with inflammatory change about the appendix is again present, compatib le complex appendicitis. Percutaneous drainage catheter present on prior exam has been removed. There is a small residual abscess present measuring 2.6 x 2.0 cm (axial image 95). There is no evidence of bowel obstruction. Small fat-containing umbilical hernia noted. Images through the pelvis were performed. There is no evidence of ascites or lymphadenopathy. Urinary bladder unremarkable. Prostate gland is markedly enlarged. Impression: Periappendiceal abscess measures 2.6 x 2.0 cm, decreased from prior exam. There is been interval [place] of the percutaneous drainage catheter. Of 2 mm nonobstructing left renal stone. Small fat-containing umbilical hernia. Markedly enlarged prostate gland. Reviewed, dictated and finalized at [facility]. Impression: Periappendiceal abscess measures 2.6 x 2.0 cm, decreased from prior exam. There is been interval removal of the percutaneous drainage catheter. Of 2 mm nonobs tructing left renal stone. Small fat-containing umbilical hernia. Markedly enlarged prostate gland.
== END 2022-12-01 12:20 | disposition home or self-care (01) ==
PROVIDERS: PCP Family Medicine; Visit Provider Surgery
DX: K35.33 Acute appendicitis with perforation, localized peritonitis, and gangrene, with abscess (principal); N20.0 Calculus of kidney; K42.9 Umbilical hernia without obstruction or gangrene; N40.0 Benign prostatic hyperplasia without lower urinary tract symptoms
CPT/HCPCS: 74176